=== PATIENT | female | born 1960 | race Caucasian/White ===

== ENCOUNTER → 2020-10-10 09:42 | Outpatient (CLI) | payer OTHER, SELFPAY ==
[2020-10-10 11:36] LABS: COVID19 -Nasal RAPID Negative (Negative)
== END ==
PROVIDERS: PCP Physician Assistant; Visit Provider Student in an Organized Health Care Education/Training Program
DX: Z20.822 Contact with and (suspected) exposure to COVID-19 (principal)
CPT/HCPCS: 87635

== ENCOUNTER 2020-10-12 07:02 | Day surgery (SDC) | payer OTHER, SELFPAY ==
[2020-10-10 07:29] VITALS: BMI 25.7
[2020-10-12] VITALS (13 sets, daily range): BP systolic 121–159; BP diastolic 64–97; PULSE 75–110; RESP 12–16; TEMP 36.1–37; O2SAT 92–97; BMI 25.0
[2020-10-12] MEDS: ACETAMINOPHEN 325 MG TABLET 975 MG PO (08:19)
[2020-10-12] MEDS: CELECOXIB 200 MG CAPSULE PO (08:19)
[2020-10-12] MEDS: LACTATED RINGERS 1,000 ML 42 ML IV ×2 (08:20→10:37)
[2020-10-12] MEDS: CEFAZOLIN 2 GM/100 ML FROZ.PIGGY IV ×2 (08:54→17:43)
--- NOTE | 2020-10-12 09:27 | SUR.OPER ---
Supine on padded [place] table with bilateral legs secured in padded positioning boots and suspended in positioning spars, operative leg in traction per surgeon. Head on one pillow. Arm on non-operative side secured on padded armboard <90 degrees abduction. Arm on operative side padded and resting across chest then secured with tape over sheet. Padded perineal post in place per surgeon.
[2020-10-12] MEDS: ROPIVACAINE 0.5% PF 5 MG/ML 20ML VIAL 35 ML INJ (09:30)
[2020-10-12] MEDS: KETOROLAC 30 MG/ML VIAL INJ (09:31)
[2020-10-12] MEDS: MORPHINE 4 MG/ML INJ INJ (09:32)
[2020-10-12] MEDS: SODIUM CHLORIDE IRRIG SOLUTION 250 ML, POVIDONE-IODINE SPONGE STICKS 1 APPLIC IRR (09:33)
[2020-10-12] MEDS: TRANEXAMIC ACID 1,000 MG VIAL 2000 MG INJ ×2 (09:57→10:18)
--- NOTE | 2020-10-12 10:42 | P.OP_ITS ---
Operative Date/Time/Diagnoses Date of procedure: 10/12/20 Time of procedure: 10:42 Pre-op diagnosis: left hip OA Post-op diagnosis: same Procedure & Clinicians Procedure: Left anterior total hip arthroplasty Same procedure as scheduled: Yes Indications: Severe left hip osteoarthritis resistant to further conservative measures Surgeon: Travis Maynard Performance Test Architect: Sam Lane Anesthesia Type: General and Spinal Operative Notes Findings: Severe left hip osteoarthritis with eyke-sc-mmsp articulation of the left hip as well as large medial wall osteophytes rim osteophytes head neck osteophytes. Closure Type: primary Specimen(s): none sent Prosthetic devices, grafts, tissues, transplants, or devices: Mendiola and Nephew R3 50 mm 1x 25 mm screw 1x 15 mm screw 50 mm x 32 mm neutral offset polyethylene liner Size 5 standard offset anthology stem Thirty 2+4 Biolox Delta ceramic head Estimated Blood Loss (mL): 200 Blood products transfused: none Procedure in detail: Patient was met in the preoperative holding area where the site and side of surgery were marked by MD. Informed consent had been reviewed in clinic but informed consent was not sent over from clinic so was reviewed again in the preoperative holding area risks and benefits were discussed with the patient. After thorough discussion of the risks and benefits the patient wishes to proceed a left anterior total hip arthroplasty. Patient was then brought back to the operating room where she received a spinal anesthetic and was then transferred onto the [place] table. The bilateral feet were placed in well-padded the [place] table boots. She was induced under general anesthesia. The left lower extremity then prepped and draped in normal sterile fashion. A surgical time-out was performed verifying the site and side of surgery as well as the name of the patient. A 7 cm long incision aiming towards the ASIS starting approximately 2 cm distal and lateral to the ASIS was made in the skin using 10. Blade. Electrocautery was then used to dissect down to the level of the tensor fascia. A new 10. Blade was then used to incise the tensor fascia and Allis clamp was placed on the medial leaflet of the tensor fascia of the tensor muscle itself was reflected laterally in a Cobra was placed over the superior aspect of femoral neck. Meyerding retractor was then placed over the lateral aspect of the rectus femoris and retracted medially. This gave us exposure to the ascending branches of the femoral circumflex vessels these were coagulated using electrocautery. A 2nd Cobra retractors placed over the inferior aspect of the femoral neck and a bent Hohmann was placed over the anterior lip of the acetabulum to give us good capsular exposure. Inverted T-shaped capsulotomy was then performed. The superior and inferior leaflets were tagged with FiberWire suture. A reciprocating saw was then used to make a femoral neck cut based off of our preoperative template. Corkscrew was then used to remove the head. Retractors then placed for acetabular exposure and the remnant of the pulmonary are was removed using electrocautery as well as rim of the labrum. We began reaming with a 42 mm Reamer to medialized and upsizing by 2s. Fluoroscopic imaging was then brought in for final reaming. A 40 mm reaming started to get some resistance a 49 mm Reamer was then selected which had good resistance and we selected a 50 mm 3 hole R3 cup. This was then malleted into place under fluoroscopic guidance again based off our preoperative templated standing films. Two screws were then placed both with good purchase. A neutral offset liner was then placed make sure the polyethylene tabs were flush with the rim of the acetabular cup. Next we turned our attention to the femoral side a femoral elevator hook was placed and the posterior aspect of the femur the femur was then externally rotated to 120? extended to the floor and adducted. A bent Hohmann was then placed over the superior aspect of the superior leaflet of the capsulotomy and the capsule was then released off the inner shoulder of the greater trochanter thereby allowing a single prong large tractor be placed over the greater trochanter. A Hoff retractor was then placed over the calcar to give us good neck cut exposure. Controlled release of the short external rotators was then performed. A canal finer was then used followed by chili pepper broach followed by broaching starting with a size 1 broach upsizing by once until size 5. Size 5 had good canal fill and rotational stability then trialed off and a size 5 broach with a standard offset neck and a 32+ 0 head. Hip was stable to 120? of external rotation as well as external rotation 90? and extension to the floor. Fluoroscopic imaging was brought in which determined we had good canal fit with the femoral stem and we were a couple mm short on the operative side. The hip was then dislocated the trial components removed a size 5 standard offset anthology stem was then selected and malleted into place. I then selected a 32+4 delta Biolox head. The hip was then reduced a final time. And again stability was tested with excellent stability. Fluoroscopic imaging was obtained which showed that we were several mm long on the operative side now which is what we want as she has severe osteoarthritis on the other side and will need total hip arthroplasty on the right as well. Betadine solution was then placed in the wound allowed to sit for several minutes prior to being lavage with copious normal saline. Periarticular anesthetic injection was then performed and the capsulotomy was pared using a running Ethibond suture. The FiberWire sutures were removed. The tensor fascia was then closed using a running 1. Vicryl in locking fashion followed by running fat layer suture followed by 2 0 Vicryl in the subcutaneous layer followed by 3-0 Stratafix in the subcuticular followed by Dermabond and Aquacel dressing. Complications: none Post-operative Condition: stable Disposition: PACU Plan for aftercare: 24 hours post-op abx, WBAT LLE, ASA 81mg BId for 6 weeks for DVT prophylaxis
--- NOTE | 2020-10-12 10:47 | DI.RAD.S_ITS ---
PROCEDURE: XR HIP LT 1V INDICATIONS: INNER OP TECHNIQUE: 2 view(s) of the hip acquired. COMPARISON: None. FINDINGS: Bones: Patient is status post left hip arthroplasty, with hardware components in expected positions. The hip joint appears congruent. The visualized bony structures appear intact. Soft tissues: Overlying postoperative changes are noted. No suspicious soft tissue densities. IMPRESSION: Normal alignment on single frontal view after left total hip arthroplasty earlier same day. Dictated by: Chace Lopez M.D. on 10/12/2020 at 15:06 Approved by: Chace Lopez M.D. on 10/12/2020 at 15:07
--- NOTE | 2020-10-12 10:50 | PM.PREOP ---
Pre-operative Note COVID-19 COVID-19 status: Negative Result date/Date tested (Pos, Neg/Pending): 10/10/20 Interval Note History & Physical reviewed/Exam performed by Physician: Yes Changes to H&P: No H&P completed within 30 days and has changed as indicated here:: Plan for left anterior CRISTY
--- NOTE | 2020-10-12 11:30 | DI.RAD.S_ITS ---
PROCEDURE: XR PELVIS 1-2V INDICATIONS: LEFT TOTAL ANTERIOR HIP TECHNIQUE: 1 view of the lower pelvis acquired. COMPARISON: None. FINDINGS: Bones: Patient is status post total left hip arthroplasty, with hardware components in expected positions. The hip joint appears congruent. The visualized bony structures appear intact. End-stage right hip arthritis. Soft tissues: Overlying postoperative changes are noted. No suspicious soft tissue densities. IMPRESSION: 1. Expected appearance of total left hip arthroplasty. 2. End-stage arthritic change of the right hip. Dictated by: Lamberto Wisdom M.D. on 10/12/2020 at 11:34 Approved by: Lamberto Wisdom M.D. on 10/12/2020 at 11:35
[2020-10-12] MEDS: LACTATED RINGERS 1,000 ML 125 ML IV ×2 (12:21→21:05)
[2020-10-12] MEDS: IBUPROFEN 400 MG TABLET PO ×3 (12:24→20:34)
[2020-10-12] MEDS: ACETAMINOPHEN 325 MG TABLET 650 MG PO ×2 (14:36→20:34)
--- NOTE | 2020-10-12 16:15 | PT.IIE ---
Current Diagnoses Unilateral primary osteoarthritis, left hip (10/12/20) Surgery Performed Operation Date: 10/12/20 08:45 Actual Procedures p Total Hip Arthroplasty/Anterior Approach(Left) - Travis Maynard MD Surgical History (Last Updated 10/10/20 @ 08:09 by Andreina High, RN) Hx of arthroscopy of right knee (~2000) Medical History (Last Updated 10/10/20 @ 08:09 by Andreina High RN) Ankle fracture, left (~2017) HTN (hypertension) Osteoarthritis Wrist fracture, right (~2019) Physical Therapy Inpatient Evaluation/Re-Eval M1 PT/OT-IP Prior Functional Status Start: 10/12/20 13:39 Freq: NEEDED Status: Active Protocol: Document 10/12/20 16:15 DLM (Rec: 10/12/20 16:41 DLM [id number]) Medical Review Prior Functional Status Medical History Reviewed Yes Diet/Fluid Consistency Regular Communication WNL Mobility and Gait Independent without device Activities of Daily Living and IADL's Independent Prior Functional Level (Other details) active, drives Social History Household Members none Living Arrangements House Number of Floors (Floors) One Floor Number of Stairs To Enter/Railing? 2 steps to enter from garage with one rail Home Environment Standard Height Toilet,Walk in Shower Home Equipment Front Wheel Walker,Straight Cane,Raised Toilet Seat Without Armrests,Shower Seat without Backrest,Grab Bars Near Toilet Additional Social History Comment Works in [employer] de[employer] M2 PT-IP Current Condition Start: 10/12/20 13:39 Freq: NEEDED Status: Active Protocol: Document 10/12/20 16:15 DLM (Rec: 10/12/20 16:41 DLM [id number]) Physical Therapy Current Condition Current Condition Evaluation Date 10/12/20 Treatment Diagnosis left anterior CRISTY, impaired gait Onset Date 10/12/20 Precautions Anterior Hip Precautions No Hip Extension,No Hip External Rotation Weight Bearing Status Weight Bearing Status Weight Bear as Tolerated M3 PT-IP Subjective Start: 10/12/20 13:39 Freq: NEEDED Status: Active Protocol: Document 10/12/20 16:15 DLM (Rec: 10/12/20 16:41 DLM [id number]) Subjective Physical Therapy Visit Type Type Initial Evaluation Visit Start Time 15:40 Visit Stop Time 16:15 Total Visit Minutes [address] Maynard clarify if he wants full anterior hip precautions since he only ordered CRISTY protocol and not the precautions specifically Number of INTERVENTIONAL NEURORADIOLOGIST Visits 0 Physical Therapy Visit Comments Patient Comments She reports friends will be coming/going to help her at home after discharge. No one will be staying with her at home. Patient Goals discharge home tomorrow Therapy Pain Assessment Pain When Pain Assessed During Mobility Pain Present Pain Present Pain Reported Location left hip Intensity 4 Scale Used Numeric (0 - 10) Description Aching Pain Management Techniques Apply Cold,Re-positioning M4 PT-IP Mobility and Gait Start: 10/12/20 13:39 Freq: NEEDED Status: Active Protocol: Document 10/12/20 16:15 DLM (Rec: 10/12/20 16:41 DLM [id number]) PT-Bed Mobility Assessment Supine to Sit Supine to Sit Standby Assistance Sit to Supine Sit to Supine Standby Assistance Scooting Scooting to Edge of Bed Independent Scooting Up and Down in Bed Independent PT-Transfer Assessment Sit to and From Stand Sit to and from Stand Standby Assistance,Use of Upper Extremities Equipment Transfer Assistive Device Gait Belt,Front Wheeled Walker Transfers Transfer Destination Bed,Chair Transfer Technique Stand Step Pivot Transfer Ability Level of Assist Standby Assistance,Use of Upper Extremities Comments Mobility Comments Pt up to recliner this visit, no light-headedness and no nausea Gait Assessment Gait Gait Assistance Required: Standby Assistance Distance (Feet) 40 Able to Maintain Weight Bearing Status Yes During Gait Assistive Devices Assistive Device Gait Belt,Front Wheeled Walker Gait Deviations General Gait Pattern Antalgic Factors Limiting Gait Function Factors Limiting Gait Function Decreased Activity Tolerance, Decreased Strength,Pain Comments Gait Comments educated her in sequencing with FWW post CRISTY Stair Climbing Assessment Comments Stair Climbing Comments will plan to do stair training tomorrow before discharge PT-Balance Assessment Sitting Balance and Reactions Static Sitting Balance Ability Normal Dynamic Sitting Balance Ability Normal Standing Balance and Reactions Static Standing Balance Ability Good Dynamic Standing Balance Ability Good Device Used FWW M5 PT-IP Objective Assessments Start: 10/12/20 13:39 Freq: NEEDED Status: Active Protocol: Document 10/12/20 16:15 DLM (Rec: 10/12/20 16:41 DLM [id number]) Orientation Orientation/Cognition Level of Alertness Alert Orientation Name,Age,Birthday,Month,Date, Year,Day of Week,Place, Situation Language Function Ability No Deficits Noted Safety Awareness Understands Safety Issues Memory Description No Deficits Noted Comments She reports she was educated in anterior hip precautions before surgery Gross Range of Motion Upper Extremity ROM Assessment Within Functional Limits Lower Extremity ROM Assessment Left Impaired Impairments post-op restrictions left hip, anterior precautions Strength Upper Extremity Strength Assessment Within Functional Limits Lower Extremity Strength Assessment Left Impaired Hip pain limits flexion 3-/5 Knee thigh soreness with knee ext Ankle DF 5/5 Coordination Assessment Gross Coordination Gross Coordination WNL Sensation Assessment Sensation Gross Sensation WNL Muscle Tone Muscle Tone WNL Yes M6 PT-IP Treatment Start: 10/12/20 13:39 Freq: NEEDED Status: Active Protocol: Document 10/12/20 16:15 DLM (Rec: 10/12/20 16:41 DLM [id number]) Physical Therapy Treatment Exercises Exercises Ankle Pumps,Gluteal Sets Education Education Provided Precautions,Weight Bearing Status,Post-Op Packet,Safety Equipment Issued Equipment Type and Company she has her FWW and cane from home in her room Other Treatments Other Treatment Performed verbally reviewed sequence to use going up/down stairs to answer pt's question. M7 PT-IP Assessment and Plan Start: 10/12/20 13:39 Freq: NEEDED Status: Active Protocol: Document 10/12/20 16:15 DLM (Rec: 10/12/20 16:41 DLM [id number]) PT Summary Assessment and Plan Potential Rehabilitation Potential Excellent Status of Condition at Evaluation Evolving Summary Impairments Pain,ROM,Strength,Balance,Bed Mobility,Transfers,Gait, Activity Tolerance Assessment Summary Mena is alert and eager to get up with physical therapy. She reports having no left knee pain since surgery. She tolerated getting up to recliner and gait in her room well with FWW. Pt left up in recliner with feet elevated and ice in incisional area. Pt will be alone at home with friends just coming by to help as needed. She is progressing well so far on day of surgery . Anticipate she will be able to discharge home tomorrow if she continues to progress well . Will plan to do stair training tomorrow before discharge. Goals Bed Mobility Goal Independent Transfer Goal Independent,Front Wheeled Walker Gait Goal Independent,Front Wheel Walker Gait Distance 150 feet Other Goals Up and down two steps with rail and cane with SBA. Demonstrate understanding of post-op precautions during functional mobility. Days to Meet Goals 2 Frequency of Treatment Frequency Of Treatment Twice a Day Treatment Plan Physical Therapy Treatment Plan Bed Mobility Training,Transfer Training,Gait Training, Therapeutic Exercise,Balance Retraining,Post Op Education, Discharge Planning,Hot or Cold Pack Recommendations To Nursing Amount of Assist Needed Standby Assistance Discharge Recommendations PT Discharge Recommendations Home Transportation Needs at Discharge Private Vehicle
--- NOTE | 2020-10-12 16:20 | PC.ADMIT ---
[facility] Admission Note: The patient,Mena Peñaloza,60 y/o, was given written information regarding hospital policies, unit procedures and contact persons. Patient's smoking status: Current every day smoker. Vital Signs - 8 hr 10/12/20 10:50 10/12/20 10:55 10/12/20 11:00 Temperature 98.3 F Pulse Rate 93 H 87 96 H Respiratory Rate 12 12 14 Blood Pressure 132/89 139/96 H 148/87 H Pulse Oximetry 95 93 94 10/12/20 11:04 10/12/20 11:30 10/12/20 12:00 Temperature 98 F 96.9 F L 96.9 F L Pulse Rate 84 87 75 Respiratory Rate 12 16 16 Blood Pressure 154/97 H 141/94 H 131/87 Pulse Oximetry 94 95 92 10/12/20 12:24 10/12/20 12:30 10/12/20 13:30 Temperature 96.9 F L 96.9 F L 97.2 F L Pulse Rate 92 H 85 Respiratory Rate 14 14 Blood Pressure 140/80 121/64 Pulse Oximetry 95 94 10/12/20 16:10 Temperature 97.7 F Pulse Rate 83 Respiratory Rate 16 Blood Pressure 140/91 H Pulse Oximetry 97
[2020-10-12] MEDS: OXYCODONE IR 5 MG TABLET 10 MG PO (17:31)
[2020-10-12] MEDS: ASPIRIN EC 81 MG TABLET PO (20:34)
[2020-10-12] MEDS: DOCUSATE 100 MG CAPSULE PO (20:35)
[2020-10-12] MEDS: PANTOPRAZOLE 20 MG TABLET PO (20:40)
--- NOTE | 2020-10-12 23:22 | PC.NURSE ---
per , no anterior hip restrictions
[2020-10-13 01:00] VITALS: BP 154/95; PULSE 86; RESP 16; TEMP 36.9; O2SAT 99
[2020-10-13] MEDS: CEFAZOLIN 2 GM/100 ML FROZ.PIGGY IV (01:02)
[2020-10-13] MEDS: IBUPROFEN 400 MG TABLET PO ×3 (01:02→08:55)
--- NOTE | 2020-10-13 01:31 | PC.NURSE ---
patient is alert and oriented. Breath sounds CTA with RA sat of 99%. HRR. BP elevated at 154/95. Denies nausea. BT present and is passing flatus. Denies dysuria, frequency or urgency with urination. Able to move self in bed and up to bathroom with walker and SBA; denies weakness. Aquacel dressing to left hip is CDI. Has petechiael bruising on lateral left thigh, left lower back, left medial thigh and right lateral thigh. Denies pain but has some numbness/tenderness in left thigh; ice applied and medicated with scheduled Ibuprofen. CMS is otherwise intact although has decreased ROM in left hip. Wearing bilateral calf SCD's. Fall risk score is moderate and bed alarm is activated.
[2020-10-13 04:40] VITALS: BP 163/92; PULSE 89; RESP 16; TEMP 36.4; O2SAT 100
[2020-10-13 07:42] LABS: Hematocrit 34.4 % (36-46); Hemoglobin 11.6 g/dL (12.0-16.0)
--- NOTE | 2020-10-13 08:40 | CM.IDA ---
Initial DCP Assessment Note Pt is a 60 yo female, resident of [place], now POD#1 from left hip surgery w/ Dr Maynard PCP: Alma Fallon Payer: Ruddy Reviewed chart, Therapy has cleared pt for return home w/friends to assist and pt has planned for home, DC order from Ortho expected this morning. Patient still needs to complete stair training w/therapy team No needs expected from DC planning team although will remain available in case this changes today. SHAYNA Delgado Discharge Planning/Care Management CM Discharge Assessment Start: 10/13/20 08:38 Freq: Status: Active Protocol: Document 10/13/20 08:38 ANA MARÍA (Rec: 10/13/20 08:40 ANA MARÍA [id number]) Discharge Planning Assessment Assigned Research Epidemiologist SHAYNA Jerze DPOA/Assigned Designee Name Willa Anderson (sister) Contact Information Chavez Quintanilla (friend) Advance Directives? Yes History Provided By Patient,Medical Record Prior Living Arrangements House Household Members none Type of transporation used prior to Drives own vehicle admit Independent with ADL's Yes Is patient alert and oriented? Yes Barriers to Discharge No Comment Pending stair training, clearance from therapy and DC order Discharge Plan Home Transportation Arrangement Friend Referrals Initiated None needed
[2020-10-13 08:44] VITALS: BP 151/83; PULSE 76; RESP 19; TEMP 36.4; O2SAT 100
[2020-10-13] MEDS: LOSARTAN 50 MG TABLET PO (08:54)
[2020-10-13] MEDS: DOCUSATE 100 MG CAPSULE PO (08:54)
[2020-10-13] MEDS: ASPIRIN EC 81 MG TABLET PO (08:54)
[2020-10-13] MEDS: ACETAMINOPHEN 325 MG TABLET 650 MG PO (08:55)
[2020-10-13] MEDS: SODIUM CHLORIDE 0.9% FLUSH 10 ML IV (09:00)
[2020-10-13] MEDS: INFLUENZA VACCINE 0.5 ML SYRINGE IM (09:09)
--- NOTE | 2020-10-13 09:10 | PM.DS.1 ---
History of Present Illness History of Present Illness Date Patient Seen: 10/13/20 Time Patient Seen: 09:11 Chief complaint: OPB Narrative: Discharge Providers Provider Discharge Date: 10/13/20 Primary care physician: Alma Fallon PA-C Consults: 10/12/20 11:46 Consult to Discharge Planning Routine Comment: Consult to Physical Therapy Evaluate & Treat Comment: Physician Instructions: post op CRISTY protocol Consult to Respiratory Therapy Evaluate & Treat Comment: Physician Instructions: Evaluate and treat Discharge provider: Sam Lane PA-C Summary Hospital Course Discharge Diagnosis: Severe left hip osteoarthritis Hospital Course: Procedure: Left anterior total hip arthroplasty Same procedure as scheduled: Yes Indications: Severe left hip osteoarthritis resistant to further conservative measures Surgeon: Travis Maynard Composition Board Press Operator: Sam Lane Anesthesia Type: General and Spinal Operative Notes Findings: Severe left hip osteoarthritis with [id number] articulation of the left hip as well as large medial wall osteophytes rim osteophytes head neck osteophytes. Closure Type: primary Specimen(s): none sent Prosthetic devices, grafts, tissues, transplants, or devices: Mendiola and Nephew R3 50 mm 1x 25 mm screw 1x 15 mm screw 50 mm x 32 mm neutral offset polyethylene liner Size 5 standard offset anthology stem Thirty 2+4 Biolox Delta ceramic head Estimated Blood Loss (mL): 200 Blood products transfused: none Patient admitted to the hospital for left anterior total hip arthroplasty. Patient consented to the same. Patient taken operating room underwent left anterior total hip arthroplasty yesterday. Patient has worked with physical therapy. She is progressing as expected. Discharge home today in stable condition. Status at Discharge Cognitive/behavioral status at discharge: at baseline, oriented Functional status at discharge: uses cane/walker Overall status at discharge: patient is progressing back to baseline Time Spent with Patient Time spent: Less than 30 minutes Exam Vital Signs (past 8 hours): - 10/13/20 04:40 10/13/20 08:44 Temperature 97.5 F L 97.6 F Pulse Rate 89 76 Respiratory Rate 16 19 Blood Pressure 163/92 H 151/83 H Pulse Oximetry 100 100 Oxygen Delivery Method Room Air Oxygen Flow Rate 0 Narrative Exam Narrative: 60-year-old female resting comfortably in bed in no apparent distress. Left hip dressing is clean, dry and intact. Neurovascular status is intact to the bilateral lower extremities. Objective Labs Result Diagrams: 10/13/20 06:55 Labs: Laboratory Results - last 24 hr 10/13/20 06:55 Hgb 11.6 L Hct 34.4 L PFSH Medical History Ankle fracture, left (~2017) HTN (hypertension) Osteoarthritis Wrist fracture, right (~2019) Surgical History Hx of arthroscopy of right knee (~2000) Social History household members: none Smoking Status: Current every day smoker alcohol intake: current Discharge Assessment & Plan Assessment and Plan Assessment: Patient progressing as expected status post left anterior total hip arthroplasty Plan of Treatment: Weight-bearing as tolerated. Aspirin 81 mg b.i.d. for 6 weeks. Ibuprofen, Tylenol, pain meds as directed. Discharge Plan Discharge Plan Patient Disposition: Home Discharge orders & Medications Discharge Orders: Discharge (Order); Ordered 10/13/20 Ordered By: Sam Lane Prescriptions: New acetaminophen 325 mg Tablet 650 mg PO TID Qty: 60 RF: 0 polyethylene glycol 3350 17 gram Powder In Packet 17 gm PO DAILY PRN (Reason: Constipation) Qty: 15 RF: 0 aspirin 81 mg Tablet,Delayed Release (Dr/Ec) 81 mg PO BID Qty: 60 RF: 0 ibuprofen 400 mg Tablet 400 mg PO Q4HR Qty: 60 RF: 0 Continued losartan 50 mg Tablet 50 mg PO DAILY RF: 0 omeprazole 20 mg Capsule,Delayed Release(Dr/Ec) 20 mg PO Q OTHER DAY RF: 0 Discontinued meloxicam 15 mg Tablet 15 mg PO DAILY RF: 0 acetaminophen 500 mg Tablet 1,000 mg PO Q6H PRN (Reason: Pain) RF: 0 Follow up/Referrals: Alma Fallon PA-C [Primary Care Provider] - Travis Maynard MD [Physician] - (Two weeks) Diet/Activity/Treatments Diet: Diet as Tolerated Activity: Weight-bearing as tolerated Cold/Heat Therapy: Apply ice to the hip as needed Skin/Wound/Dressing Care Report to your healthcare provider any signs of infection, such as:: chills, fever, increased pain, unusual drainage and unusual redness Dressing: May shower otherwise keep dressing clean and dry Visit Report/Discharge Packet Instructions: DI for Hip Replacement Stand Alone Forms: Surgery Discharge Discharge Data Primary Care Provider: Alma Fallon Attending Provider: Travis Maynard
--- NOTE | 2020-10-13 10:02 | PT.IPTN ---
Current Diagnoses Unilateral primary osteoarthritis, left hip (10/12/20) Surgery Performed Operation Date: 10/12/20 08:45 Actual Procedures p Total Hip Arthroplasty/Anterior Approach(Left) - Travis Maynard MD Physical Therapy Treatment Note M2 PT-IP Current Condition Start: 10/12/20 13:39 Freq: NEEDED Status: Active Protocol: Document 10/12/20 16:15 DLM (Rec: 10/12/20 16:41 DLM [id number]) Physical Therapy Current Condition Current Condition Evaluation Date 10/12/20 Treatment Diagnosis left anterior CRISTY, impaired gait Onset Date 10/12/20 Precautions Anterior Hip Precautions No Hip Extension,No Hip External Rotation Weight Bearing Status Weight Bearing Status Weight Bear as Tolerated M3 PT-IP Subjective Start: 10/12/20 13:39 Freq: NEEDED Status: Active Protocol: Document 10/13/20 09:06 CLB (Rec: 10/13/20 10:42 CLB [id number]) Subjective Physical Therapy Visit Type Type Treatment Note Visit Start Time 09:06 Visit Stop Time 10:02 Total Visit Minutes 33 Notes Split treat [phone] 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 Therapy Pain Assessment Pain When Pain Assessed During Mobility Pain Present Pain Present Pain Reported Location left hip Intensity 3 Scale Used Numeric (0 - 10) Description Tightness Pain Management Techniques Re-positioning,Timing of Activity with Medications M4 PT-IP Mobility and Gait Start: 10/12/20 13:39 Freq: NEEDED Status: Active Protocol: Document 10/13/20 09:06 CLB (Rec: 10/13/20 10:42 CLB [id number]) PT-Bed Mobility Assessment Supine to Sit Supine to Sit Standby Assistance Sit to Supine Sit to Supine Standby Assistance Scooting Scooting to Edge of Bed Independent Scooting Up and Down in Bed Independent PT-Transfer Assessment Sit to and From Stand Sit to and from Stand Standby Assistance,Use of Upper Extremities Equipment Transfer Assistive Device Gait Belt,Front Wheeled Walker Transfers Transfer Destination Bed Transfer Technique Stand Step Pivot Transfer Ability Level of Assist Standby Assistance,Use of Upper Extremities Comments Mobility Comments Pt with low pain during movement. Gait Assessment Gait Gait Assistance Required: Standby Assistance Distance (Feet) 250 Able to Maintain Weight Bearing Status Yes During Gait Assistive Devices Assistive Device Gait Belt,Front Wheeled Walker Gait Deviations General Gait Pattern Antalgic Factors Limiting Gait Function Factors Limiting Gait Function Decreased Activity Tolerance, Decreased Strength,Pain Comments Gait Comments Pt requiring cues for sequencing and proper position inside walker, pt would good follow through. Stair Climbing Assessment Evaluation Level of Assist On Stairs Standby Assistance Devices Stair Climbing Assistive Devices Straight Cane,Right Railing Technique/Endurance Stair Climbing Direction Ascend and Descend Stair Climbing Technique Step to Step Number of Steps Climbed 3 Stair Climbing Set # Repetitions (reps) 2 Comments Stair Climbing Comments able to climb stairs SBA M5 PT-IP Objective Assessments Start: 10/12/20 13:39 Freq: NEEDED Status: Active Protocol: Document 10/12/20 16:15 DLM (Rec: 10/12/20 16:41 DLM [id number]) Orientation Orientation/Cognition Level of Alertness Alert Orientation Name,Age,Birthday,Month,Date, Year,Day of Week,Place, Situation Language Function Ability No Deficits Noted Safety Awareness Understands Safety Issues Memory Description No Deficits Noted Comments She reports she was educated in anterior hip precautions before surgery Gross Range of Motion Upper Extremity ROM Assessment Within Functional Limits Lower Extremity ROM Assessment Left Impaired Impairments post-op restrictions left hip, anterior precautions Strength Upper Extremity Strength Assessment Within Functional Limits Lower Extremity Strength Assessment Left Impaired Hip pain limits flexion 3-/5 Knee thigh soreness with knee ext Ankle DF 5/5 Coordination Assessment Gross Coordination Gross Coordination WNL Sensation Assessment Sensation Gross Sensation WNL Muscle Tone Muscle Tone WNL Yes M6 PT-IP Treatment Start: 10/12/20 13:39 Freq: NEEDED Status: Active Protocol: Document 10/13/20 09:06 CLB (Rec: 10/13/20 10:42 CLB [id number]) Physical Therapy Treatment Exercises Exercises Ankle Pumps,Gluteal Sets,Quad Sets,Heel Slides Education Education Provided Precautions,Weight Bearing Status,Post-Op Packet,Safety Equipment Issued Equipment Type and Company she has her FWW and cane from home in her room Other Treatments Other Treatment Performed demonstrated use of sock aid. M7 PT-IP Assessment and Plan Start: 10/12/20 13:39 Freq: NEEDED Status: Active Protocol: Document 10/13/20 09:06 CLB (Rec: 10/13/20 10:42 CLB [id number]) PT Summary Assessment and Plan Potential Rehabilitation Potential Excellent Status of Condition at Evaluation Evolving Summary Impairments Pain,ROM,Strength,Balance,Bed Mobility,Transfers,Gait, Activity Tolerance Progress Towards Goals Progressing Toward Goals Assessment Summary Pt doing well with all mobility increasing gait to ~ 250ft w/FWW/SBA and climb stairs SBA. Pt left on EOB with call light and all needs within reach, informed RN of pt progress. Goals Bed Mobility Goal Independent Transfer Goal Independent,Front Wheeled Walker Gait Goal Independent,Front Wheel Walker Gait Distance 150 feet Other Goals Up and down two steps with rail and cane with SBA. Demonstrate understanding of post-op precautions during functional mobility. Days to Meet Goals 2 Frequency of Treatment Frequency Of Treatment Twice a Day Treatment Plan Physical Therapy Treatment Plan Bed Mobility Training,Transfer Training,Gait Training, Therapeutic Exercise,Balance Retraining,Post Op Education, Discharge Planning,Hot or Cold Pack Recommendations To Nursing Amount of Assist Needed Standby Assistance Discharge Recommendations PT Discharge Recommendations Home Transportation Needs at Discharge Private Vehicle
[2020-10-13] MEDS: OXYCODONE IR 5 MG TABLET PO (10:13)
--- NOTE | 2020-10-13 10:57 | PC.NURSE ---
Day shift: Pt left unit at approx 1100. On her way [place]. Her friend is driving her. She has MD scripts already and the others sent electronic to Pt's pharmacy by MD. Pt has all personal belongings. Pt's pain well controlled. No nausea. Aquacel remains CDI. CMS intact w/ PPP. Paperwork signed and all questions answered.
== END 2020-10-13 10:58 | disposition home or self-care (01) ==
LOC: OR 07:07 → AC 07:10
PROVIDERS: PCP Physician Assistant; Referring Provider Physician Assistant; Visit Provider Orthopaedic Surgery Adult Reconstructive Orthopaedic Surgery
PROC: (CPT 27130; principal; 2020-10-12 08:45)
DX: M16.12 Unilateral primary osteoarthritis, left hip (principal); I10 Essential (primary) hypertension; F17.210 Nicotine dependence, cigarettes, uncomplicated; M25.752 Osteophyte, left hip
CPT/HCPCS: 27130; 36415; 72170; 73501; 76000; 85014; 85018; 90471; 90656; 97110; 97116; 97162; 99406; C1776; J0690; J1100; J1885; J2250; J2270; J2405; J2704; J3010; Q2038

== ENCOUNTER → 2021-01-16 09:43 | Outpatient (CLI) | payer OTHER, SELFPAY ==
[2020-10-12 11:48] VITALS: BMI 25.0
[2021-01-16 12:10] LABS: COVID19 -Nasal RAPID Negative (Negative)
== END ==
PROVIDERS: PCP Physician Assistant; Visit Provider Physician Assistant
DX: Z01.812 Encounter for preprocedural laboratory examination (principal); Z20.822 Contact with and (suspected) exposure to COVID-19
CPT/HCPCS: 87635

== ENCOUNTER 2021-01-18 11:47 | Day surgery (SDC) | payer OTHER, SELFPAY ==
[2020-10-12 11:48] VITALS: BMI 25.0
[2021-01-16 12:45] VITALS: BMI 25.6
[2021-01-18] VITALS (11 sets, daily range): BP systolic 102–161; BP diastolic 60–90; PULSE 60–86; RESP 14–144; TEMP 36.2–36.7; O2SAT 93–98; BMI 25.8
--- NOTE | 2021-01-18 | DI.RAD.S_ITS ---
PROCEDURE: XR HIP RT 1V INDICATIONS: ANTERIOR RIGH HIP TECHNIQUE: Single intraoperative fluoroscopic spot views of the hip were acquired. COMPARISON: None. FINDINGS: Bones: Right hip arthroplasty components appear to be in appropriate position. The hip joint is congruent. There are no visible unexpected fractures. Soft tissues: No unexpected foreign bodies. IMPRESSION: Expected intraoperative appearance of right hip arthroplasty. Dictated by: Carli Abbott M.D. on 01/18/2021 at 16:39 Approved by: Carli Abbott M.D. on 01/18/2021 at 16:40
--- NOTE | 2021-01-18 | DI.RAD.S_ITS ---
PROCEDURE: XR PELVIS 1-2V INDICATIONS: POST OP TECHNIQUE: 1 view of the lower pelvis acquired. COMPARISON: [facility], CR, XR PELVIS WITH LATERAL HIP LEFT, 11/22/2020, 11:13. [facility], CR, XR HIP RT 1V, 01/18/2021, 14:59. [facility], CR, XR PELVIS 1-2V, 10/12/2020, 10:59. FINDINGS: Bones: Patient is status post bilateral hip arthroplasty, with hardware components in expected positions. The hip joint appears congruent. The visualized bony structures appear intact. Soft tissues: Overlying postoperative changes are noted. No suspicious soft tissue densities. Calcified uterine fibroid redemonstrated. IMPRESSION: Stable appearance of bilateral hip arthroplasties, the right of which is new from prior examination. Dictated by: Jimmie REYES Interpreted: Chace Lopez MD on 01/18/2021 at 16:39 Transcribed by: INES on 01/18/2021 at 16:40 Approved by: Chace Lopez M.D. on 01/18/2021 at 17:18
[2021-01-18] MEDS: PREGABALIN 75 MG CAPSULE PO (12:46)
[2021-01-18] MEDS: LACTATED RINGERS 1,000 ML 42 ML IV ×2 (12:46→15:37)
[2021-01-18] MEDS: CELECOXIB 200 MG CAPSULE PO (12:47)
[2021-01-18] MEDS: ACETAMINOPHEN 325 MG TABLET 975 MG PO (12:47)
--- NOTE | 2021-01-18 12:51 | SUR.PREOP ---
Strong pedal pulses bilaterally
--- NOTE | 2021-01-18 13:23 | PM.PREOP ---
Pre-operative Note COVID-19 COVID-19 status: Negative Result date/Date tested (Pos, Neg/Pending): 01/16/21 Interval Note History & Physical reviewed/Exam performed by Physician: Yes Changes to H&P: No H&P completed within 30 days and has changed as indicated here:: Plan for right anterior CRISTY
[2021-01-18] MEDS: CEFAZOLIN 1 GM VIAL 2 GM IV ×2 (14:14→22:14)
[2021-01-18] MEDS: TRANEXAMIC ACID 1,000 MG VIAL 1000 MG INJ ×2 (14:20→15:41)
--- NOTE | 2021-01-18 14:34 | SUR.OPER ---
Patient supine on padded Hertel table, one arm on padded arm board at <90, other arm padded and secured with tape across patient's chest, both legs secured in padded traction boots and positioned per surgeon, padded post at patient's groin, pressure points checked and padded.
[2021-01-18] MEDS: ROPIVACAINE 0.5% PF 5 MG/ML 20ML VIAL 60 ML INJ (14:40)
[2021-01-18] MEDS: KETOROLAC 30 MG/ML VIAL IV (14:43)
[2021-01-18] MEDS: MORPHINE 4 MG/ML INJ INJ (14:43)
[2021-01-18] MEDS: SODIUM CHLORIDE IRRIG SOLUTION 250 ML, POVIDONE-IODINE SPONGE STICKS 1 APPLIC IRR (14:44)
--- NOTE | 2021-01-18 16:07 | PM.OP.1 ---
Operative Date/Time/Diagnoses Date of procedure: 01/18/21 Time of procedure: 16:07 Pre-op diagnosis: right hip OA Post-op diagnosis: same Procedure & Clinicians Procedure: Right anterior total hip arthroplasty Same procedure as scheduled: Yes Indications: Severe osteoarthritis of the right hip with obliteration of the joint space collapse of the femoral head and large osteophytes resistant to further conservative measures Surgeon: Travis Maynard Bellhop Service Captain: Justyn Morgan Anesthesia Type: General and Spinal Operative Notes Findings: Femoral head collapse, large head neck junction osteophytes large rim osteophytes large medial wall osteophyte overall severe osteoarthritis right hip Closure Type: primary Specimen(s): none sent Prosthetic devices, grafts, tissues, transplants, or devices: Mendiola and Nephew 48 mm R3 cup 1x 35mm screw 1x 15mm screw 48 mm x 32 mm neutral offset polyethylene liner Size 5 anthology stem standard offset 32+ 0 delta Biolox head Estimated Blood Loss (mL): 200 Procedure in detail: Patient was met in the preoperative holding area where the site and side of surgery were marked by . Informed consent was reviewed in the preoperative holding area. Risks and benefits were discussed with the patient. After thorough discussion of the risks and benefits the patient wishes to proceed a right anterior total hip arthroplasty. Patient was then brought back to the operating room where she received a spinal anesthetic and was then transferred onto the [place] table. The bilateral feet were placed in well-padded the [place] table boots. She was induced under general anesthesia. The right lower extremity then prepped and draped in normal sterile fashion. A surgical time-out was performed verifying the site and side of surgery as well as the name of the patient. A 7 cm long incision starting approximately 2 cm distal and 1 cm lateral to the ASIS aiming towards the fibular head was made in the skin using 10. Blade. Electrocautery was then used to dissect down to the level of the tensor fascia. A new 10. Blade was then used to incise the tensor fascia and Allis clamp was placed on the medial leaflet of the tensor fascia of the tensor muscle itself was reflected laterally in a Cobra was placed over the superior aspect of femoral neck. Meyerding retractor was then placed over the lateral aspect of the rectus femoris and retracted medially. This gave us exposure to the ascending branches of the femoral circumflex vessels these were coagulated using electrocautery. A 2nd Cobra retractors placed over the inferior aspect of the femoral neck and a bent Hohmann was placed over the anterior lip of the acetabulum to give us good capsular exposure. Inverted T-shaped capsulotomy was then performed. The superior and inferior leaflets were tagged with FiberWire suture. A reciprocating saw was then used to make a femoral neck cut based off of our preoperative template. Corkscrew was then used to remove the head. A soft tissue protector was then palced. Retractors were then placed for acetabular exposure and the remnant of the pulvinar are was removed using electrocautery as well as remnant of the labrum. We began reaming with a 42 mm Reamer to medialized and upsizing by 2s. Fluoroscopic imaging was then brought in for final reaming. A 46 mm reaming started to get some resistance. a 47 mm Reamer was then selected which had good resistance and we selected a 48 mm 3 hole R3 cup. This was then malleted into place under fluoroscopic guidance again based off our preoperative templated standing films. Two screws were then placed both with good purchase. A neutral offset liner was then placed make sure the polyethylene tabs were flush with the rim of the acetabular cup. Next we turned our attention to the femoral side a femoral elevator hook was placed and the posterior aspect of the femur the femur was then externally rotated to 120? extended to the floor and adducted. A bent Hohmann was then placed over the superior aspect of the superior leaflet of the capsulotomy and the capsule was then released off the inner shoulder of the greater trochanter thereby allowing a single prong large tractor be placed over the greater trochanter. A Hoff retractor was then placed over the calcar to give us good neck cut exposure. Controlled release of the short external rotators was then performed. A canal finer was then used followed by chili pepper broach followed by broaching starting with a size 1 broach upsizing by ones until size 5. Size 5 had good canal fill and rotational stability then trialed off and a size 5 broach with a standard offset neck and a 32+ 0 head. Hip was stable to 120? of external rotation as well as external rotation 90? and extension to the floor. Fluoroscopic imaging was brought in which determined we had good canal fit with the femoral stem and we were a couple mm long on the operative side. The hip was then dislocated the trial components removed. I then countersunk the size 5 broach. We then we trialed off the size 5 broach with a standard offset neck. A 32+ 0 head was slightly long as compared to the contralateral side however I think this option band the 32- 3 due to stability. A size 5 standard offset anthology stem was then selected and malleted into place. I then selected a 32+0 delta Biolox head. The hip was then reduced a final time. Betadine solution was then placed into the wound and allowed to sit for several minutes prior to being lavage with copious normal saline. Periarticular anesthetic injection was then performed and the capsulotomy was repaired using a running Ethibond suture. The FiberWire sutures were removed. The tensor fascia was then closed using a running 1. Vicryl in locking fashion followed by running fat layer suture followed by 2 0 Vicryl in the subcutaneous layer followed by 3-0 Stratafix in the subcuticular followed by Dermabond and Aquacel dressing. Post-operative Condition: stable Disposition: PACU Plan for aftercare: 24 hours postop antibiotics, aspirin 81 mg b.i.d. for DVT prophylaxis for 6 weeks postop, weightbearing as tolerated right lower extremity
[2021-01-18] MEDS: IBUPROFEN 400 MG TABLET PO ×2 (17:43→20:46)
[2021-01-18] MEDS: LACTATED RINGERS 1,000 ML 125 ML IV (17:43)
--- NOTE | 2021-01-18 18:33 | PC.NURSE ---
Patient up to unit at 1705. Alert and oriented x4, call light in reach, bed low and locked. No pain and CMS intact. Dressing is CDI. Patient resting comfortably.
[2021-01-18] MEDS: ASPIRIN EC 81 MG TABLET PO (20:46)
[2021-01-18] MEDS: DOCUSATE 100 MG CAPSULE PO (20:46)
[2021-01-18] MEDS: diphenhydrAMINE 50 MG/ML VIAL 25 MG IV (20:46)
[2021-01-18] MEDS: ACETAMINOPHEN 325 MG TABLET 650 MG PO (20:46)
[2021-01-18] MEDS: ONDANSETRON 4 MG/2 ML INJ IV (20:46)
[2021-01-19] VITALS: BP 121/84; PULSE 72; RESP 16; TEMP 36.1; O2SAT 96
[2021-01-19] MEDS: ONDANSETRON 4 MG/2 ML INJ IV (00:12)
[2021-01-19] MEDS: IBUPROFEN 400 MG TABLET PO ×3 (00:12→08:30)
[2021-01-19] MEDS: LACTATED RINGERS 1,000 ML 125 ML IV (02:41)
[2021-01-19] MEDS: CEFAZOLIN 1 GM VIAL 2 GM IV (05:22)
[2021-01-19 05:42] VITALS: BP 148/96; PULSE 82; RESP 16; TEMP 36.1; O2SAT 99
[2021-01-19 07:25] VITALS: BP 135/89; PULSE 77; RESP 18; TEMP 36.1; O2SAT 98
--- NOTE | 2021-01-19 07:32 | P.PN_ITS ---
Subjective Subjective Date Patient Seen: 01/19/21 Time Patient Seen: 07:32 Interval history: Patient states she is doing well overall and is in minimal discomfort at rest. At this time she reports slight tenderness along the lateral right thigh. Patient denies fever, chills, nausea, chest pain, shortness of breath, or urinary retention. Patient reports good sensation throughout the bilateral lower extremities. Exam Vital Signs (past 8 hours): - 01/19/21 00:00 01/19/21 05:42 Temperature 97.0 F L 97.0 F L Pulse Rate 72 82 Respiratory Rate 16 16 Blood Pressure 121/84 148/96 H Pulse Oximetry 96 99 Oxygen Delivery Method Room Air Oxygen Flow Rate 0 Narrative Exam Narrative: Pleasant 60-year-old female postop day 1 status post right anterior total hip arthroplasty. Patient is resting comfortably in bed, is in no acute distress, is alert and oriented x3. Skin is warm and dry, and the skin surrounding the incision site is free of erythema, warmth, induration, or discharge. Aquacel dressing over the incision site is clean, dry, and intact. Good sensation appreciated throughout the bilateral lower extremities to light touch. Gross motor function intact. Calves are soft nontender, negative Homans sign. No other signs of DVT appreciated. Const General: cooperative, healthy appearing and comfortable Resp Effort & Inspection: normal respiratory effort and able to speak in complete sentences Skin General: no rashes or lesions noted Objective Labs Result Diagrams: 01/19/21 06:43 [facility] Medical History Ankle fracture, left (~2018) HTN (hypertension) Osteoarthritis Wrist fracture, right (~2019) Surgical History History of total left hip arthroplasty (10/12/20) Hx of arthroscopy of right knee (~2000) Social History household members: none Smoking Status: Current every day smoker alcohol intake: current Assessment & Plan Post-op Postoperative Procedures: Procedures Operation Date: 01/18/21 13:15 Actual Procedure Side Surgeon p Total Hip Arthroplasty/Anterior Approach Right Travis Maynard MD Postoperative day: 1 Postoperative status: doing well Postoperative plan: ambulate Postoperative plan narrative: Patient is to work on ambulation with the assistance of a front wheeled walker with physical therapy. Patient will continue use of walker for 6 weeks following discharge. Current pain management regimen is to be continued as it is adequately controlled the patient's pain level. Aspirin 81 mg twice daily is to be continued for DVT prophylaxis. Pending successful work with physical therapy today plan for discharge likely home either today or tomorrow. Quality VTE Deep Vein Thrombosis/Pulmonary Embolism Present on Admission: No
[2021-01-19 08:30] VITALS: BP 148/96
[2021-01-19] MEDS: ASPIRIN EC 81 MG TABLET PO (08:30)
[2021-01-19] MEDS: DOCUSATE 100 MG CAPSULE PO (08:30)
[2021-01-19] MEDS: LOSARTAN 50 MG TABLET PO (08:30)
[2021-01-19] MEDS: ACETAMINOPHEN 325 MG TABLET 650 MG PO (08:31)
[2021-01-19 08:35] LABS: Hematocrit 35.4 % (36-46); Hemoglobin 11.7 g/dL (12.0-16.0)
--- NOTE | 2021-01-19 10:32 | PT.IIE ---
Current Diagnoses Unilateral primary osteoarthritis, right hip (01/18/21) Surgery Performed Operation Date: 01/18/21 13:15 Actual Procedures p Total Hip Arthroplasty/Anterior Approach(Right) - Travis Maynard MD Medical History (Last Reviewed 01/19/21 @ 11:11 by Justyn Morgan PA-C) Ankle fracture, left (~2017) HTN (hypertension) Osteoarthritis Wrist fracture, right (~2019) Physical Therapy Inpatient Evaluation/Re-Eval M1 PT/OT-IP Prior Functional Status Start: 01/19/21 13:13 Freq: NEEDED Status: Active Protocol: Document 01/19/21 10:32 AB (Rec: 01/19/21 13:29 AB [id number]) Medical Review Prior Functional Status Medical History Reviewed Yes Communication able to make needs known Mobility and Gait pt stated that she is modified independent with all mobilities and ambulation using FWW for the last month; stated that she has her L CRISTY last september and was progressing well and was able to ambulate using a SPC but then R hip was getting worse and she has to switch back into using a fWW Social History Household Members none Living Arrangements House Number of Floors (Floors) One Floor Number of Stairs To Enter/Railing? 1 step to enter Home Environment Walk in Shower Home Equipment Front Wheel Walker,Straight Cane,Raised Toilet Seat Without Armrests,Shower Seat without Backrest,Hand Held Shower,Grab Bars In Shower Additional Social History Comment stated that a friend will stay with her for ~ 2 days to assist her M2 PT-IP Current Condition Start: 01/19/21 13:13 Freq: NEEDED Status: Active Protocol: Document 01/19/21 10:32 AB (Rec: 01/19/21 13:29 AB [id number]) Physical Therapy Current Condition Current Condition Evaluation Date 01/19/21 Treatment Diagnosis s/p R CRISTY anterior approach; difficulty in walking Onset Date 01/18/21 Precautions Anterior Hip Precautions No Hip Extension,No Hip External Rotation Weight Bearing Status Weight Bearing Status Weight Bear as Tolerated Allowed Weight Bearing Amount (enter % RLE WBAT or #) (%) M3 PT-IP Subjective Start: 01/19/21 13:13 Freq: NEEDED Status: Active Protocol: Document 01/19/21 10:32 AB (Rec: 01/19/21 13:29 AB [email or web address]) Subjective Physical Therapy Visit Type Type Initial Evaluation Visit Start Time 10:32 Visit Stop Time 11:02 Total Visit Minutes 30 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 of 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 Visits 0 Physical Therapy Visit Comments Patient Comments pt is agreeable to do PT Therapy Pain Assessment Pain When Pain Assessed At Rest Pain Present Pain Present Denied Pain M4 PT-IP Mobility and Gait Start: 01/19/21 13:13 Freq: NEEDED Status: Active Protocol: Document 01/19/21 10:32 AB (Rec: 01/19/21 13:29 AB [id number]) PT-Bed Mobility Assessment Supine to Sit Supine to Sit Standby Assistance Sit to Supine Sit to Supine Standby Assistance PT-Transfer Assessment Sit to and From Stand Sit to and from Stand Standby Assistance Equipment Transfer Assistive Device Gait Belt,Front Wheeled Walker Orthotic/Prosthetic Devices or Brace: No Transfers Transfer Destination Chair Transfer Technique ambulated Transfer Ability Level of Assist Standby Assistance,Use of Upper Extremities Comments Mobility Comments educated pt on hip precautions . completed supine to sit SBA . completed sit to stand SBA and ambulated in room FWW using FWW SBA and agreed to ambulate out in the hallway and completed ~ 150 ft using FWW SBA. pt completed up/down platform step using FWW SBA x 2 sets. pt ambulated back to her room. agreed to stay up on chair. positioned on chair . call light and table placed within reach. Gait Assessment Gait Gait Assistance Required: Standby Assistance Distance (Feet) 150 Able to Maintain Weight Bearing Status Yes During Gait Assistive Devices Assistive Device Gait Belt,Front Wheeled Walker Orthotic/Prosthetic Devices or Brace: No Gait Deviations General Gait Pattern Antalgic,Decreased Stride Length,Decreased Feet Clearance Factors Limiting Gait Function Factors Limiting Gait Function Decreased Activity Tolerance, Decreased Strength,Limited Range of Motion,Poor Balance Stair Climbing Assessment Evaluation Level of Assist On Stairs Standby Assistance Devices Stair Climbing Assistive Devices Front Wheel Walker Technique/Endurance Stair Climbing Direction Ascend and Descend Stair Climbing Technique Step to Step Number of Steps Climbed 1 Query Text: Stair Climbing Set # Repetitions (reps) 4 PT-Balance Assessment Sitting Balance and Reactions Static Sitting Balance Ability Normal Dynamic Sitting Balance Ability Normal Standing Balance and Reactions Static Standing Balance Ability Good Dynamic Standing Balance Ability Fair Device Used FWW M5 PT-IP Objective Assessments Start: 01/19/21 13:13 Freq: NEEDED Status: Active Protocol: Document 01/19/21 10:32 AB (Rec: 01/19/21 13:29 AB [id number]) Orientation Orientation/Cognition Level of Alertness Alert Orientation Name,Age,Birthday,Month,Date, Year,Day of Week,Place, Situation Language Function Ability No Deficits Noted Safety Awareness Understands Safety Issues Memory Description No Deficits Noted Gross Range of Motion Lower Extremity ROM Assessment Within Functional Limits Strength Lower Extremity Strength Assessment Right Impaired Hip 4-/5 Coordination Assessment Gross Coordination Gross Coordination WNL Sensation Assessment Sensation Gross Sensation WNL Muscle Tone Muscle Tone WNL Yes M6 PT-IP Treatment Start: 01/19/21 13:13 Freq: NEEDED Status: Active Protocol: Document 01/19/21 10:32 AB (Rec: 01/19/21 13:29 AB [id number]) Physical Therapy Treatment Education Education Provided Precautions,Weight Bearing Status,Post-Op Packet,Safety M7 PT-IP Assessment and Plan Start: 01/19/21 13:13 Freq: NEEDED Status: Active Protocol: Document 01/19/21 10:32 AB (Rec: 01/19/21 13:29 AB [id number]) PT Summary Assessment and Plan Potential Rehabilitation Potential Good Status of Condition at Evaluation Stable Summary Impairments Pain,ROM,Strength,Balance,Bed Mobility,Transfers,Gait, Activity Tolerance Assessment Summary pt requiring SBA with mobility using FWW. pt stated that she has outpt PT scheduled. pt plans to go home later today. Goals Bed Mobility Goal Independent Transfer Goal Independent,Front Wheeled Walker Gait Goal Independent,Front Wheel Walker Gait Distance 300 Other Goals up/down platform step using FWW mod I Days to Meet Goals 3 Frequency of Treatment Frequency Of Treatment Twice a Day Treatment Plan Physical Therapy Treatment Plan Bed Mobility Training,Transfer Training,Gait Training, Therapeutic Exercise,Balance Retraining,Post Op Education, Discharge Planning,Hot or Cold Pack,Neuromuscular Re-ed, Coordination Retraining,Manual Therapy Precautions Anterior Hip Precautions No Hip Extension,No Hip External Rotation Other Precautions RLE WBAT Recommendations To Nursing Amount of Assist Needed Standby Assistance Discharge Recommendations PT Discharge Recommendations Home with Assistance, Outpatient PT Transportation Needs at Discharge Private Vehicle
--- NOTE | 2021-01-19 11:09 | P.DS_ITS ---
History of Present Illness History of Present Illness Date Patient Seen: 01/19/21 Time Patient Seen: 11:09 Chief complaint: OPB Narrative: Refer to previous HPI. Discharge Providers Provider Discharge Date: 01/19/21 Primary care physician: Alma Flalon PA-C Consults: 01/18/21 11:37 Consult to Anesthesiology Routine Comment: Consulting Provider: Anesthesiologist Reason for consultation: Regional block for post operative pain control 01/18/21 17:20 Consult to Discharge Planning Routine Comment: Consult to Physical Therapy Evaluate & Treat Comment: Physician Instructions: post op CRISTY protocol Consult to Respiratory Therapy Evaluate & Treat Comment: Physician Instructions: Evaluate and treat Discharge provider: Justyn Morgan PA-C Summary Hospital Course Discharge Diagnosis: Right hip osteoarthritis Status post right anterior total hip arthroplasty Hospital Course: Patient was admitted to the hospital following the above-listed procedure for the above-listed diagnosis. Following the procedure the patient has been convalescing appropriately in her pain has been managed with current pain management regimen. Throughout the course of time hospital the patient has denied fever, chills, nausea, chest pain, shortness of breath, or urinary retention. Dressing over the incision site has remained clean, dry, and intact following surgery. Patient successfully work on ambulation with the assistance of a front wheeled walker with physical therapy. She has remained in standard total hip replacement protocol with anterior hip precautions. Status at Discharge Cognitive/behavioral status at discharge: oriented Functional status at discharge: uses cane/walker Overall status at discharge: patient is progressing back to baseline Exam Vital Signs (past 8 hours): - 01/19/21 05:42 01/19/21 07:25 01/19/21 08:30 Temperature 97.0 F L 97 F L Pulse Rate 82 77 Respiratory Rate 16 18 Blood Pressure 148/96 H 135/89 148/96 H Pulse Oximetry 99 98 Oxygen Delivery Method Room Air Oxygen Flow Rate 0 Narrative Exam Narrative: Pleasant 60-year-old female postop day 1 status post right anterior total hip arthroplasty. Patient is resting comfortably in bed, is in no acute distress, is alert and oriented x3. Skin is warm and dry, and the skin surrounding the incision site is free of erythema, warmth, induration, or discharge. Aquacel dressing over the incision site is clean, dry, and intact. Good sensation appreciated throughout the bilateral lower extremities to light touch. Gross motor function intact. Calves are soft nontender, negative Homans sign. No other signs of DVT appreciated. Const General: cooperative, healthy appearing and comfortable Resp Effort & Inspection: normal respiratory effort and able to speak in complete sentences Skin General: no rashes or lesions noted Objective Labs Result Diagrams: 01/19/21 06:43 Labs: Laboratory Results - last 24 hr 01/19/21 06:43 Hgb 11.7 L Hct 35.4 L [facility] Medical History Ankle fracture, left (~2017) HTN (hypertension) Osteoarthritis Wrist fracture, right (~2019) Surgical History History of total left hip arthroplasty (10/12/20) Hx of arthroscopy of right knee (~2000) Social History household members: none Smoking Status: Current every day smoker alcohol intake: current Discharge Assessment & Plan Assessment and Plan Assessment: Patient is doing well and is stable. Plan of Treatment: Patient is to continue outpatient physical therapy following discharge from the hospital. First postoperative visit in clinic is scheduled for 2 weeks following discharge. Current pain management regimen is to be continued as it is adequately controlled the patient's pain level. Aspirin 81 mg twice daily is to be continued for 6 weeks for DVT prophylaxis. Patient is to remain weight- bearing as tolerated with the assistance of a front wheeled walker for 6 weeks. Aquacel dressing over the incision site is to remain clean, dry, and intact for 2 weeks. Contact clinic if the dressing becomes damaged or soiled. Patient is to contact the clinic with any concerns or questions. Any signs of increased redness, swelling, warmth, pain, or discharge from around the incision site should be reported to the clinic. Discharge Plan Discharge Plan Patient Disposition: Home Discharge orders & Medications Discharge Orders: Discharge (Order); Ordered 01/19/21 Ordered By: Michelle Mendiola Prescriptions: New acetaminophen 325 mg Tablet 650 mg PO TID Qty: 90 RF: 0 aspirin 81 mg Tablet,Delayed Release (Dr/Ec) 81 mg PO BID Qty: 90 RF: 0 ibuprofen 400 mg Tablet 400 mg PO Q4HR Qty: 90 RF: 0 Continued losartan 50 mg Tablet 50 mg PO DAILY RF: 0 omeprazole 20 mg Capsule,Delayed Release(Dr/Ec) 20 mg PO Q OTHER DAY RF: 0 meloxicam 15 mg Tablet 15 mg PO DAILY RF: 0 acetaminophen 500 mg Tablet 1,000 mg PO DAILY RF: 0 Follow up/Referrals: Alma Fallon PA-C [Primary Care Provider] - Diet/Activity/Treatments Diet: Diet as Tolerated Activity: Ambulate multiple times a day. Cold/Heat Therapy: Apply ice to hip multiple times a day. Skin/Wound/Dressing Care Skin care: Okay to shower. Report to your healthcare provider any signs of infection, such as:: chills, fever, night sweats, increased pain, unusual drainage and unusual redness Dressing: Leave dressing on. Visit Report/Discharge Packet Instructions: DI for Hip Replacement Stand Alone Forms: Surgery Discharge Discharge Data Primary Care Provider: Alma Fallon Attending Provider: Travis Maynard VTE Deep Vein Thrombosis/Pulmonary Embolism Present on Admission: No
--- NOTE | 2021-01-19 12:08 | PC.NURSE ---
Pt is dressed and ready for discharge home with Friend. HL removed. Went over d/c instructions with Pt-discussed d/c meds, time of last dose, reviewed stroke education, s/s of infection, showering, anterior hip precautions, pain control, no driving while on narcotics, drinking plenty of fluids to prevent constipation or dehydration and follow up. Pt denied further questions and will call when her ride is here so that she can be taken out via w/c to POV with all belongings.
== END 2021-01-19 12:44 | disposition home or self-care (01) ==
LOC: OR 11:50 → AC 11:52
PROVIDERS: PCP Physician Assistant; Referring Provider Orthopaedic Surgery Adult Reconstructive Orthopaedic Surgery; Visit Provider Orthopaedic Surgery Adult Reconstructive Orthopaedic Surgery
PROC: (CPT 27130; principal; 2021-01-18 13:15)
DX: M16.11 Unilateral primary osteoarthritis, right hip (principal); M25.751 Osteophyte, right hip; I10 Essential (primary) hypertension; F17.210 Nicotine dependence, cigarettes, uncomplicated; K21.9 Gastro-esophageal reflux disease without esophagitis
CPT/HCPCS: 27130; 72170; 73501; 76000; 85014; 85018; 94762; 97161; 97530; C1776; J0690; J1100; J1200; J1885; J2250; J2270; J2274; J2405; J2704; J3010